=== PATIENT | male | born 1975 | race Two or more races ===

== ENCOUNTER 2024-07-21 08:53 | Inpatient (IN) | payer OTHER ==
[~2024-07-21] VITALS: Ht 172.7 cm; Wt 102.3 kg
[2024-07-21 09:50] LABS: COVID AG,FIA SOURCE NASAL SWAB
[2024-07-21 09:54] LABS: BASOPHILS % (AUTO) 0.5 % (0.0-2.0); EOSINOPHILS % (AUTO) 0.2 % (1.0-6.0); HEMATOCRIT 38.8 % (41-53); HEMOGLOBIN 12.8 g/dL (13.5-17.5); LYMPHOCYTES # (AUTO) 1.5 K/uL (1.0-4.8); LYMPHOCYTES % (AUTO) 14.4 % (22.0-44.0); MEAN CORPUSCULAR HEMOGLOBIN 29.9 pg (26.0-34.0); MEAN CORPUSCULAR HGB CONC 33.1 G/dL (31.0-37.0); MEAN CORPUSCULAR VOLUME 91 fL (80-100); MONOCYTES # (AUTO) 1.2 K/uL (0.1-1.0); MONOCYTES % (AUTO) 11.1 % (2.0-9.0); NEUTROPHILS # (AUTO) 7.9 K/uL (1.8-7.7); NEUTROPHILS % (AUTO) 73.8 % (40.0-70.0); PLATELET COUNT (AUTO) 258 K/uL (150-450); RED BLOOD CELL COUNT(AUTO) 4.28 MIL/uL (4.50-5.90); WHITE BLOOD COUNT (AUTO) 10.7 K/uL (4.5-11.0)
[2024-07-21 10:17] LABS: ALCOHOL, BLOOD (SERUM) < 3 mg/dL (0-10)
[2024-07-21 10:33] LABS: SARS-COV2 (COVID) ANTIGEN,FIA Negative (Negative)
[2024-07-21 10:35] LABS: ANION GAP 15 mmol/L (8-16); CALCIUM, TOTAL 8.8 mg/dL (8.8-10.5); CARBON DIOXIDE 25 mmol/L (22-29); CHLORIDE 107 mmol/L (98-107); CREATININE 1.15 mg/dL (0.60-1.30); GLOMERULAR FILTR. RATE CALC > 60 mL/min (>60); GLUCOSE,RANDOM 112 mg/dL (70-110); SODIUM SERUM 147 mmol/L (136-145); UREA NITROGEN, BLOOD 27 mg/dL (7-18)
[2024-07-21 12:36] VITALS: BP 132/73; PULSE 110; RESP 20; TEMP 98.4; O2SAT 97
[2024-07-21 15:21] VITALS: BP 132/73; PULSE 110; RESP 20; TEMP 98.4; O2SAT 97
[2024-07-21 21:11] VITALS: BP 143/97; PULSE 125; RESP 20; TEMP 99.2; O2SAT 93
[2024-07-21] MEDS: LORazepam 2 MG/ML VIAL IVP ONE (21:34)
[2024-07-22] MEDS ORDERED: ONDANSETRON HCL 4 MG/2 ML VIAL IVP PRN (00:45)
[2024-07-22] MEDS ORDERED: ACETAMINOPHEN 325 MG TABLET PO PRN (00:45)
[2024-07-22] MEDS ORDERED: ALBUTEROL SULFATE 2.5 MG/0.5 ML NEB SOLUTION NEB PRN (00:45)
[2024-07-22] MEDS ORDERED: ZOLPIDEM TARTRATE 5 MG TABLET PO PRN (00:45)
[2024-07-22] MEDS ORDERED: HYDROCODONE/ACETAMINOPHEN 5-325 MG TABLET PO PRN (00:45)
[2024-07-22] MEDS ORDERED: BISACODYL 10 MG RECTAL RECTAL SUPPOSITORY PR PRN (00:45)
[2024-07-22] MEDS ORDERED: IPRATROPIUM BROMIDE 0.5 MG/2.5 ML NEB SOLUTION NEB PRN (00:45)
[2024-07-22] MEDS ORDERED: MAGNESIUM HYDROXIDE SUSPENSION 30 ML UDCUP PO PRN (00:45)
[2024-07-22 05:37] VITALS: BP 157/93; PULSE 103; RESP 20; TEMP 98.1; O2SAT 93
[2024-07-22] MEDS: MORPHINE SULFATE 2 MG/ML SYRINGE IVP PRN (05:51)
[2024-07-22] MEDS: PANTOPRAZOLE SODIUM 40 MG DR TABLET PO SCH (09:09)
[2024-07-22] MEDS: HEPARIN SODIUM,PORCINE 5,000 UNITS/ML VIAL SQ SCH (09:09)
[2024-07-22 10:30] VITALS: BP 118/85; PULSE 92; RESP 20; TEMP 98; O2SAT 93
[2024-07-22 19:46] VITALS: BP 112/75; PULSE 89; RESP 20; TEMP 98.2; O2SAT 98
[2024-07-23 06:33] VITALS: BP 112/71; PULSE 71; RESP 18; TEMP 98.1; O2SAT 96
[2024-07-23 07:29] VITALS: BP 116/70; PULSE 74; RESP 18; TEMP 98.4; O2SAT 96
== END 2024-07-23 14:55 | DRG 885 ==
LOC: EMS 08:53 → EDH 11:36 → 6S 12:21
PROVIDERS: ADMIT Hospitalist; ATTEND Hospitalist
PROC: GZ56ZZZ Individual Psychotherapy, Supportive (ICD-10-PCS; principal; 2024-07-22)
DX: F23 Brief psychotic disorder (principal); Z20.822 Contact with and (suspected) exposure to COVID-19; Z88.2 Allergy status to sulfonamides; Z91.128 Patient's intentional underdosing of medication regimen for other reason
CPT/HCPCS: 80048; 85025; 93005; 99285; G0480; J1644; J2060; J2270

== ENCOUNTER 2024-07-28 02:38 | Inpatient (IN) | payer OTHER ==
[~2024-07-28] VITALS: Ht 167.6 cm; Wt 125.2 kg
[2024-07-28 04:54] LABS: BASOPHILS % (AUTO) 0.3 % (0.0-2.0); HEMATOCRIT 35.6 % (41-53); HEMOGLOBIN 11.9 g/dL (13.5-17.5); LYMPHOCYTES # (AUTO) 1.4 K/uL (1.0-4.8); LYMPHOCYTES % (AUTO) 14.2 % (22.0-44.0); MEAN CORPUSCULAR HEMOGLOBIN 29.9 pg (26.0-34.0); MEAN CORPUSCULAR HGB CONC 33.5 G/dL (31.0-37.0); MEAN CORPUSCULAR VOLUME 89 fL (80-100); MONOCYTES # (AUTO) 1.5 K/uL (0.1-1.0); MONOCYTES % (AUTO) 14.7 % (2.0-9.0); NEUTROPHILS % (AUTO) 69.8 % (40.0-70.0); PLATELET COUNT (AUTO) 185 K/uL (150-450); RED BLOOD CELL COUNT(AUTO) 3.98 MIL/uL (4.50-5.90); RED CELL DISTRIBUTION WIDTH 13.6 % (11.5-14.5)
[2024-07-28 04:57] LABS: COVID AG,FIA SOURCE NASAL SWAB
[2024-07-28 05:02] LABS: ANION GAP 10 mmol/L (8-16); CALCIUM, TOTAL 8.2 mg/dL (8.8-10.5); CARBON DIOXIDE 25 mmol/L (22-29); CHLORIDE 101 mmol/L (98-107); CREATININE 0.88 mg/dL (0.60-1.30); GLOMERULAR FILTR. RATE CALC > 60 mL/min (>60); GLUCOSE,RANDOM 118 mg/dL (70-110); POTASSIUM 3.7 mmol/L (3.5-5.1); SODIUM SERUM 136 mmol/L (136-145); UREA NITROGEN, BLOOD 13 mg/dL (7-18)
[2024-07-28 05:14] LABS: ALCOHOL, BLOOD (SERUM) < 3 mg/dL (0-10)
[2024-07-28 05:24] LABS: SARS-COV2 (COVID) ANTIGEN,FIA Negative (Negative)
[2024-07-28 10:59] LABS: ALCOHOL, URINE DRUG SCREEN NEGATIVE (NEGATIVE); AMPHET/METH SCREEN,URINE NEGATIVE (NEGATIVE); BARBITURATE SCREEN, URINE NEGATIVE (NEGATIVE); BENZODIAZEPINES SCREEN,URINE NEGATIVE (NEGATIVE); CANNABINOID SCREEN,URINE NEGATIVE (NEGATIVE); COCAINE SCREEN,URINE NEGATIVE (NEGATIVE); METHADONE SCREEN, URINE NEGATIVE (NEGATIVE); OPIATE SCREEN,URINE NEGATIVE (NEGATIVE); PHENCYCLIDINE SCREEN,URINE NEGATIVE (NEGATIVE)
[2024-07-28 11:07] VITALS: BP 130/87; PULSE 87; RESP 19; TEMP 97.6; O2SAT 95
[2024-07-28] MEDS: HEPARIN SODIUM,PORCINE 5,000 UNITS/ML VIAL SQ SCH (17:53)
[2024-07-28 19:24] LABS: APPEARANCE,URINE TURBID (CLEAR); BILIRUBIN,URINE NEGATIVE (NEGATIVE); COLOR,URINE YELLOW (YELLOW); GLUCOSE, URINE (UA) NEGATIVE (NEGATIVE); LEUKOCYTE ESTERASE ,URINE NEGATIVE (NEGATIVE); NITRATE,URINE NEGATIVE (NEGATIVE); OCCULT BLOOD,URINE NEGATIVE (NEGATIVE); PROTEIN,URINE TRACE mg/dL (NEGATIVE); SPECIFIC GRAVITIY, URINE 1.022 (1.003-1.030); UROBILINOGEN,URINE <=1.0 mg/dL (<=1.0)
[2024-07-28 20:04] VITALS: BP 117/70; PULSE 97; RESP 20; TEMP 98; O2SAT 96
[2024-07-28] MEDS: ZOLPIDEM TARTRATE 5 MG TABLET PO PRN (23:37)
[2024-07-29] MEDS: ACETAMINOPHEN 325 MG TABLET PO PRN (02:15)
[2024-07-29 05:15] VITALS: BP 110/78; PULSE 81; RESP 20; TEMP 98; O2SAT 95
[2024-07-29] MEDS: FAMOTIDINE 20 MG TABLET PO SCH (08:28)
[2024-07-29 08:32] VITALS: BP 125/77; PULSE 80; RESP 18; TEMP 98.1; O2SAT 95
[2024-07-29 20:15] VITALS: BP 124/76; PULSE 90; RESP 20; TEMP 99; O2SAT 92
[2024-07-30 08:00] VITALS: BP 124/84; PULSE 81; RESP 18; TEMP 98.3; O2SAT 99
[2024-07-30 10:52] VITALS: BP 133/82; PULSE 76; RESP 19; TEMP 98.1; O2SAT 98
[2024-07-30 20:19] VITALS: BP 136/80; PULSE 92; RESP 20; TEMP 98.4; O2SAT 92
[2024-07-31] MEDS: LORazepam 2 MG/ML VIAL IM ONE ×2 (01:28→01:30)
[2024-07-31 08:33] VITALS: BP 103/74; PULSE 90; RESP 20; TEMP 98.4; O2SAT 98
[2024-07-31 19:44] VITALS: BP 123/76; PULSE 99; RESP 20; TEMP 97.5; O2SAT 95
[2024-08-01] MEDS: MAGNESIUM HYDROXIDE SUSPENSION 30 ML UDCUP PO PRN (01:39)
[2024-08-01 05:06] VITALS: BP 128/82; PULSE 90; RESP 20; TEMP 98.7; O2SAT 94
[2024-08-01 07:23] VITALS: BP 120/77; PULSE 95; RESP 18; TEMP 97.7; O2SAT 93
[2024-08-01] MEDS: QUEtiapine FUMARATE 25 MG TABLET PO PRN (10:18)
[2024-08-01 19:31] VITALS: BP 117/86; PULSE 100; RESP 19; TEMP 97.2; O2SAT 94
[2024-08-02 06:06] VITALS: BP 124/69; PULSE 94; RESP 20; TEMP 98.1; O2SAT 95
[2024-08-02 08:09] VITALS: BP 116/75; PULSE 89; RESP 18; TEMP 98.3; O2SAT 95
[2024-08-02 20:15] VITALS: BP 141/74; PULSE 99; RESP 20; TEMP 98.2; O2SAT 99
[2024-08-03 07:54] VITALS: BP 119/74; PULSE 93; RESP 18; TEMP 97.8; O2SAT 94
[2024-08-03 08:39] LABS: BASOPHILS % (AUTO) 0.5 % (0.0-2.0); EOSINOPHILS % (AUTO) 4.6 % (1.0-6.0); HEMATOCRIT 40.4 % (41-53); HEMOGLOBIN 13.3 g/dL (13.5-17.5); LYMPHOCYTES # (AUTO) 2.1 K/uL (1.0-4.8); LYMPHOCYTES % (AUTO) 25.3 % (22.0-44.0); MEAN CORPUSCULAR HEMOGLOBIN 29.7 pg (26.0-34.0); MEAN CORPUSCULAR HGB CONC 32.8 G/dL (31.0-37.0); MEAN CORPUSCULAR VOLUME 90 fL (80-100); MONOCYTES # (AUTO) 0.8 K/uL (0.1-1.0); MONOCYTES % (AUTO) 9.6 % (2.0-9.0); NEUTROPHILS # (AUTO) 5.1 K/uL (1.8-7.7); PLATELET COUNT (AUTO) 381 K/uL (150-450); RED BLOOD CELL COUNT(AUTO) 4.47 MIL/uL (4.50-5.90); RED CELL DISTRIBUTION WIDTH 13.9 % (11.5-14.5); WHITE BLOOD COUNT (AUTO) 8.4 K/uL (4.5-11.0)
[2024-08-03 09:03] LABS: ANION GAP 9 mmol/L (8-16); CALCIUM, TOTAL 8.9 mg/dL (8.8-10.5); CARBON DIOXIDE 27 mmol/L (22-29); CHLORIDE 100 mmol/L (98-107); CREATININE 0.82 mg/dL (0.60-1.30); GLOMERULAR FILTR. RATE CALC > 60 mL/min (>60); GLUCOSE,RANDOM 97 mg/dL (70-110); POTASSIUM 4.5 mmol/L (3.5-5.1); SODIUM SERUM 136 mmol/L (136-145); UREA NITROGEN, BLOOD 17 mg/dL (7-18)
[2024-08-04 04:29] VITALS: BP 124/86; PULSE 96; RESP 18; TEMP 97.9; O2SAT 94
[2024-08-04 08:06] LABS: INR 1.1 (0.9-1.1); PROTHROMBIN TIME 11.3 SEC (9.4-11.6)
[2024-08-04 08:32] VITALS: BP 124/84; PULSE 89; RESP 19; TEMP 97.9; O2SAT 97
[2024-08-04] MEDS ORDERED: FentaNYL CITRATE PF 100 MCG/2 ML VIAL ONE (10:46)
[2024-08-04] MEDS ORDERED: MIDAZOLAM HCL 2 MG/2 ML VIAL ONE (10:47)
[2024-08-04] MEDS ORDERED: LIDOCAINE/PF 1% 30 ML VIAL ONE (10:47)
[2024-08-04] MEDS ORDERED: FAMO20 PO (15:33)
[2024-08-04] MEDS ORDERED: QUET25TA PO (15:34)
[2024-08-04 19:33] LABS: BASOPHILS % (AUTO) 0.5 % (0.0-2.0); EOSINOPHILS % (AUTO) 3.1 % (1.0-6.0); HEMATOCRIT 40.3 % (41-53); HEMOGLOBIN 13.2 g/dL (13.5-17.5); LYMPHOCYTES # (AUTO) 1.8 K/uL (1.0-4.8); LYMPHOCYTES % (AUTO) 22.3 % (22.0-44.0); MEAN CORPUSCULAR HEMOGLOBIN 29.6 pg (26.0-34.0); MEAN CORPUSCULAR HGB CONC 32.8 G/dL (31.0-37.0); MEAN CORPUSCULAR VOLUME 90 fL (80-100); MONOCYTES # (AUTO) 0.6 K/uL (0.1-1.0); MONOCYTES % (AUTO) 7.1 % (2.0-9.0); NEUTROPHILS # (AUTO) 5.4 K/uL (1.8-7.7); PLATELET COUNT (AUTO) 395 K/uL (150-450); RED BLOOD CELL COUNT(AUTO) 4.47 MIL/uL (4.50-5.90); RED CELL DISTRIBUTION WIDTH 13.8 % (11.5-14.5)
[2024-08-04 19:48] LABS: ANION GAP 9 mmol/L (8-16); CALCIUM, TOTAL 9.1 mg/dL (8.8-10.5); CARBON DIOXIDE 28 mmol/L (22-29); CHLORIDE 102 mmol/L (98-107); CREATININE 1.08 mg/dL (0.60-1.30); GLOMERULAR FILTR. RATE CALC > 60 mL/min (>60); GLUCOSE,RANDOM 157 mg/dL (70-110); SODIUM SERUM 139 mmol/L (136-145); UREA NITROGEN, BLOOD 28 mg/dL (7-18)
[2024-08-04 20:17] VITALS: BP 143/85; PULSE 109; RESP 19; TEMP 98.5; O2SAT 97
[2024-08-05 04:15] VITALS: BP 118/75; PULSE 70; RESP 19; TEMP 98.2; O2SAT 98
[2024-08-05 09:06] VITALS: BP 124/70; PULSE 93; RESP 20; TEMP 97.4; O2SAT 92
[2024-08-05] MEDS: QUEtiapine FUMARATE 100 MG TABLET PO SCH (16:11)
[2024-08-05 20:05] VITALS: BP 129/82; PULSE 97; RESP 19; TEMP 97.8; O2SAT 95
[2024-08-06 05:15] VITALS: BP 126/83; PULSE 78; RESP 19; TEMP 97.8; O2SAT 96
[2024-08-06 08:18] VITALS: BP 149/66; PULSE 109; RESP 18; TEMP 98.5; O2SAT 96
[2024-08-06 19:50] VITALS: BP 111/63; PULSE 116; RESP 20; TEMP 98.3; O2SAT 93
[2024-08-07 19:25] VITALS: BP 101/61; PULSE 100; RESP 20; TEMP 98.4; O2SAT 95
[2024-08-08 05:00] VITALS: BP 114/64; PULSE 93; RESP 20; TEMP 98.4; O2SAT 95
[2024-08-08 07:39] VITALS: BP 134/69; PULSE 87; RESP 20; TEMP 97.6; O2SAT 95
[2024-08-08 19:39] VITALS: BP 114/64; PULSE 77; RESP 20; TEMP 98.2; O2SAT 99
[2024-08-09 04:30] VITALS: BP 107/69; PULSE 82; RESP 20; TEMP 98.1; O2SAT 99
[2024-08-09 08:07] VITALS: BP 124/80; PULSE 84; RESP 20; TEMP 98.5; O2SAT 96
[2024-08-09] MEDS ORDERED: QUET100T PO (11:59)
[2024-08-09] MEDS ORDERED: ACET-2247 PO (12:00)
[2024-08-09 19:56] VITALS: BP 129/79; PULSE 111; RESP 20; TEMP 97.5; O2SAT 94
[2024-08-09 23:49] VITALS: BP 119/80; PULSE 95; RESP 20; O2SAT 95
[2024-08-10 05:31] VITALS: BP 101/70; PULSE 86; RESP 20; TEMP 97.7; O2SAT 96
[2024-08-10 09:36] VITALS: BP 113/85; PULSE 89; RESP 18; TEMP 97.9; O2SAT 97
[2024-08-10 13:30] VITALS: BP 111/80; PULSE 92; RESP 18; TEMP 98.3; O2SAT 98
== END 2024-08-10 17:00 | DRG 815 ==
LOC: EMS 02:38 → EDH 09:06 → 5S 10:55 → 6S 12:56
PROVIDERS: ADMIT Internal Medicine; ATTEND Internal Medicine
PROC: GZ52ZZZ Individual Psychotherapy, Cognitive (ICD-10-PCS; principal; 2024-08-06)
DX: R59.0 Localized enlarged lymph nodes (principal); E44.0 Moderate protein-calorie malnutrition; Z68.41 Body mass index [BMI] 40.0-44.9, adult; K11.1 Hypertrophy of salivary gland; Z20.822 Contact with and (suspected) exposure to COVID-19; F20.9 Schizophrenia, unspecified; E66.01 Morbid (severe) obesity due to excess calories; Z88.2 Allergy status to sulfonamides; Z88.6 Allergy status to analgesic agent
CPT/HCPCS: 70490; 80048; 80307; 81003; 82140; 85025; 85610; 87081; 99285; G0480; J1644; J2060; J2250; J3010; J3490

== ENCOUNTER 2024-08-10 20:57 | Inpatient (IN) | payer OTHER ==
[~2024-08-10] VITALS: Ht 172.7 cm; Wt 102.3 kg
[~2024-08-10 20:57] MED LIST: ACET-2247 PO; QUET100T PO; QUET25TA PO
[2024-08-10] MEDS ORDERED: ONDANSETRON HCL 4 MG/2 ML VIAL IVP PRN (22:00)
[2024-08-10] MEDS ORDERED: MAGNESIUM HYDROXIDE SUSPENSION 30 ML UDCUP PO PRN (22:00)
[2024-08-10] MEDS ORDERED: IPRATROPIUM BROMIDE 0.5 MG/2.5 ML NEB SOLUTION NEB PRN (22:00)
[2024-08-10] MEDS ORDERED: BISACODYL 10 MG RECTAL RECTAL SUPPOSITORY PR PRN (22:00)
[2024-08-10] MEDS ORDERED: ALBUTEROL SULFATE 2.5 MG/0.5 ML NEB SOLUTION NEB PRN (22:00)
[2024-08-10] MEDS ORDERED: ACETAMINOPHEN 325 MG TABLET PO PRN (22:00)
[2024-08-10] MEDS ORDERED: FAMO20 PO (22:32)
[2024-08-10] MEDS: HEPARIN SODIUM,PORCINE 5,000 UNITS/ML VIAL SQ SCH (23:25)
[2024-08-10 23:32] LABS: ANION GAP 12 mmol/L (8-16); CALCIUM, TOTAL 9.6 mg/dL (8.8-10.5); CARBON DIOXIDE 26 mmol/L (22-29); CHLORIDE 103 mmol/L (98-107); CREATININE 1.68 mg/dL (0.60-1.30); GLOMERULAR FILTR. RATE CALC 43 mL/min (>60); GLUCOSE,RANDOM 111 mg/dL (70-110); POTASSIUM 4.4 mmol/L (3.5-5.1); SODIUM SERUM 141 mmol/L (136-145); UREA NITROGEN, BLOOD 28 mg/dL (7-18)
[2024-08-10 23:34] LABS: BASOPHILS % (AUTO) 0.4 % (0.0-2.0); EOSINOPHILS % (AUTO) 0.1 % (1.0-6.0); HEMATOCRIT 43.1 % (41-53); LYMPHOCYTES # (AUTO) 1.6 K/uL (1.0-4.8); LYMPHOCYTES % (AUTO) 12.9 % (22.0-44.0); MEAN CORPUSCULAR HEMOGLOBIN 29.5 pg (26.0-34.0); MEAN CORPUSCULAR HGB CONC 32.5 G/dL (31.0-37.0); MEAN CORPUSCULAR VOLUME 91 fL (80-100); MONOCYTES # (AUTO) 1.2 K/uL (0.1-1.0); MONOCYTES % (AUTO) 9.4 % (2.0-9.0); NEUTROPHILS # (AUTO) 9.7 K/uL (1.8-7.7); NEUTROPHILS % (AUTO) 77.2 % (40.0-70.0); PLATELET COUNT (AUTO) 331 K/uL (150-450); RED BLOOD CELL COUNT(AUTO) 4.76 MIL/uL (4.50-5.90); RED CELL DISTRIBUTION WIDTH 14.2 % (11.5-14.5); WHITE BLOOD COUNT (AUTO) 12.6 K/uL (4.5-11.0)
[2024-08-10 23:52] LABS: ALCOHOL, BLOOD (SERUM) < 3 mg/dL (0-10)
[2024-08-11] MEDS: ZOLPIDEM TARTRATE 5 MG TABLET PO PRN (01:10)
[2024-08-11] MEDS: QUEtiapine FUMARATE 25 MG TABLET PO PRN (01:10)
[2024-08-11 04:47] VITALS: BP 127/81; PULSE 102; RESP 20; TEMP 97.8; O2SAT 95
[2024-08-11 07:41] VITALS: BP 131/78; PULSE 95; RESP 20; TEMP 98.2; O2SAT 100
[2024-08-11] MEDS: PANTOPRAZOLE SODIUM 40 MG DR TABLET PO SCH (08:57)
[2024-08-11] MEDS: QUEtiapine FUMARATE 100 MG TABLET PO SCH (10:14)
[2024-08-11 13:26] LABS: PH,URINE DRUG SCREEN 5.5 (5.0-8.0)
[2024-08-11 13:33] LABS: ALCOHOL, URINE DRUG SCREEN NEGATIVE (NEGATIVE); AMPHET/METH SCREEN,URINE NEGATIVE (NEGATIVE); BARBITURATE SCREEN, URINE NEGATIVE (NEGATIVE); BENZODIAZEPINES SCREEN,URINE NEGATIVE (NEGATIVE); CANNABINOID SCREEN,URINE NEGATIVE (NEGATIVE); COCAINE SCREEN,URINE NEGATIVE (NEGATIVE); METHADONE SCREEN, URINE NEGATIVE (NEGATIVE); OPIATE SCREEN,URINE NEGATIVE (NEGATIVE); PHENCYCLIDINE SCREEN,URINE NEGATIVE (NEGATIVE)
[2024-08-11 20:33] VITALS: BP 119/71; PULSE 88; RESP 20; TEMP 98.4; O2SAT 94
[2024-08-12 06:26] VITALS: BP 117/76; PULSE 84; RESP 20; TEMP 97.9; O2SAT 99
[2024-08-12 06:51] LABS: BASOPHILS % (AUTO) 0.5 % (0.0-2.0); EOSINOPHILS % (AUTO) 6.1 % (1.0-6.0); HEMATOCRIT 36.7 % (41-53); HEMOGLOBIN 12.2 g/dL (13.5-17.5); LYMPHOCYTES # (AUTO) 1.9 K/uL (1.0-4.8); LYMPHOCYTES % (AUTO) 32.1 % (22.0-44.0); MEAN CORPUSCULAR HGB CONC 33.3 G/dL (31.0-37.0); MEAN CORPUSCULAR VOLUME 90 fL (80-100); MONOCYTES # (AUTO) 0.6 K/uL (0.1-1.0); MONOCYTES % (AUTO) 11.1 % (2.0-9.0); NEUTROPHILS # (AUTO) 2.9 K/uL (1.8-7.7); NEUTROPHILS % (AUTO) 50.2 % (40.0-70.0); PLATELET COUNT (AUTO) 233 K/uL (150-450); RED BLOOD CELL COUNT(AUTO) 4.08 MIL/uL (4.50-5.90); RED CELL DISTRIBUTION WIDTH 14.3 % (11.5-14.5); WHITE BLOOD COUNT (AUTO) 5.8 K/uL (4.5-11.0)
[2024-08-12 07:54] LABS: ALANINE AMINOTRANSFERASE 70 U/L (12-78); ALBUMIN 2.7 g/dL (3.4-5.0); ALKALINE PHOSPHATASE 52 U/L (46-116); ANION GAP 8 mmol/L (8-16); ASPARTATE AMINOTRANSFERASE 57 U/L (15-37); BILIRUBIN,TOTAL 0.4 mg/dL (0.1-1.0); CALCIUM, TOTAL 8.3 mg/dL (8.8-10.5); CARBON DIOXIDE 27 mmol/L (22-29); CHLORIDE 100 mmol/L (98-107); CREATININE 0.83 mg/dL (0.60-1.30); GLOMERULAR FILTR. RATE CALC > 60 mL/min (>60); GLUCOSE,RANDOM 104 mg/dL (70-110); POTASSIUM 3.6 mmol/L (3.5-5.1); SODIUM SERUM 135 mmol/L (136-145); TOTAL PROTEIN, SERUM 7.6 g/dL (6.4-8.2); UREA NITROGEN, BLOOD 18 mg/dL (7-18)
[2024-08-12 08:00] VITALS: BP 124/87; PULSE 100; RESP 18; TEMP 97.6; O2SAT 96
[2024-08-12 19:57] VITALS: BP 130/72; PULSE 103; RESP 18; TEMP 97.3; O2SAT 94
[2024-08-13 03:32] VITALS: BP 132/69; PULSE 88; RESP 19; TEMP 97.5; O2SAT 94
[2024-08-13 08:00] VITALS: BP 139/74; PULSE 94; RESP 18; TEMP 97.2; O2SAT 100
[2024-08-13 20:00] VITALS: BP 106/69; PULSE 81; RESP 18; O2SAT 96
[2024-08-14 04:00] VITALS: BP 116/76; PULSE 72; RESP 19; O2SAT 95
[2024-08-14 08:33] VITALS: BP 135/90; PULSE 96; RESP 19; TEMP 98.4; O2SAT 94
[2024-08-14 20:00] VITALS: BP 132/72; PULSE 67; RESP 19; TEMP 97.6; O2SAT 96
[2024-08-15 04:00] VITALS: BP 129/68; PULSE 69; RESP 19; TEMP 97.5; O2SAT 96
[2024-08-15 07:51] VITALS: BP 123/76; PULSE 103; RESP 20; TEMP 97.8; O2SAT 96
[2024-08-15] MEDS ORDERED: MAGN-169 PO (10:56)
== END 2024-08-15 17:47 | DRG 885 ==
LOC: EMS 20:57 → EDH 21:51 → 6S 08-11 00:20
PROVIDERS: ADMIT Hospitalist; ATTEND Hospitalist
DX: F20.0 Paranoid schizophrenia (principal); N28.9 Disorder of kidney and ureter, unspecified; D72.829 Elevated white blood cell count, unspecified; R22.1 Localized swelling, mass and lump, neck; Z88.2 Allergy status to sulfonamides
CPT/HCPCS: 71045; 80048; 80053; 80307; 85025; 87040; 99285; G0378; G0480; J1644; 36415-L1; 36415-TC

== ENCOUNTER 2024-08-31 17:57 | Inpatient (IN) | payer OTHER ==
[~2024-08-31] VITALS: Ht 172.7 cm; Wt 102.3 kg
[~2024-08-31 17:57] MED LIST changes: +MAGN-169 PO
[2024-08-31 20:01] LABS: BASOPHILS % (AUTO) 0.4 % (0.0-2.0); EOSINOPHILS % (AUTO) 2.2 % (1.0-6.0); HEMATOCRIT 38.2 % (41-53); HEMOGLOBIN 12.8 g/dL (13.5-17.5); LYMPHOCYTES # (AUTO) 1.5 K/uL (1.0-4.8); LYMPHOCYTES % (AUTO) 24.6 % (22.0-44.0); MEAN CORPUSCULAR HEMOGLOBIN 30.2 pg (26.0-34.0); MEAN CORPUSCULAR HGB CONC 33.5 G/dL (31.0-37.0); MEAN CORPUSCULAR VOLUME 90 fL (80-100); MONOCYTES # (AUTO) 0.7 K/uL (0.1-1.0); NEUTROPHILS # (AUTO) 3.7 K/uL (1.8-7.7); NEUTROPHILS % (AUTO) 61.8 % (40.0-70.0); PLATELET COUNT (AUTO) 253 K/uL (150-450); RED BLOOD CELL COUNT(AUTO) 4.23 MIL/uL (4.50-5.90); RED CELL DISTRIBUTION WIDTH 15.4 % (11.5-14.5)
[2024-08-31 20:07] LABS: ANION GAP 7 mmol/L (8-16); CALCIUM, TOTAL 8.3 mg/dL (8.8-10.5); CARBON DIOXIDE 28 mmol/L (22-29); CHLORIDE 103 mmol/L (98-107); CREATININE 0.87 mg/dL (0.60-1.30); GLOMERULAR FILTR. RATE CALC > 60 mL/min (>60); GLUCOSE,RANDOM 109 mg/dL (70-110); POTASSIUM 3.9 mmol/L (3.5-5.1); SODIUM SERUM 138 mmol/L (136-145); UREA NITROGEN, BLOOD 21 mg/dL (7-18)
[2024-08-31 20:13] LABS: COVID AG,FIA SOURCE NASAL SWAB
[2024-08-31 20:24] LABS: ALCOHOL, BLOOD (SERUM) < 3 mg/dL (0-10)
[2024-08-31 21:06] LABS: SARS-COV2 (COVID) ANTIGEN,FIA Negative (Negative)
[2024-08-31] MEDS: DiphenhydrAMINE HCL 50 MG/ML VIAL IM ONE (21:34)
[2024-08-31] MEDS: HALOPERIDOL LACTATE 5 MG/ML VIAL IM ONE (21:34)
[2024-08-31] MEDS: LORazepam 2 MG/ML VIAL IM ONE (21:35)
[2024-08-31] MEDS ORDERED: ACETAMINOPHEN 325 MG TABLET PO PRN (21:45)
[2024-08-31] MEDS ORDERED: MAGNESIUM HYDROXIDE SUSPENSION 30 ML UDCUP PO PRN (21:45)
[2024-09-01 00:22] LABS: APPEARANCE,URINE HAZY (CLEAR); BILIRUBIN,URINE NEGATIVE (NEGATIVE); COLOR,URINE YELLOW (YELLOW); GLUCOSE, URINE (UA) NEGATIVE (NEGATIVE); KETONES,URINE TRACE mg/dL (NEGATIVE); LEUKOCYTE ESTERASE ,URINE LARGE (NEGATIVE); NITRATE,URINE NEGATIVE (NEGATIVE); OCCULT BLOOD,URINE NEGATIVE (NEGATIVE); PROTEIN,URINE TRACE mg/dL (NEGATIVE); UROBILINOGEN,URINE <=1.0 mg/dL (<=1.0)
[2024-09-01] MEDS: HEPARIN SODIUM,PORCINE 5,000 UNITS/ML VIAL SQ SCH (00:22)
[2024-09-01 00:29] LABS: ALCOHOL, URINE DRUG SCREEN NEGATIVE (NEGATIVE); AMPHET/METH SCREEN,URINE NEGATIVE (NEGATIVE); BARBITURATE SCREEN, URINE NEGATIVE (NEGATIVE); BENZODIAZEPINES SCREEN,URINE NEGATIVE (NEGATIVE); CANNABINOID SCREEN,URINE NEGATIVE (NEGATIVE); COCAINE SCREEN,URINE NEGATIVE (NEGATIVE); METHADONE SCREEN, URINE NEGATIVE (NEGATIVE); OPIATE SCREEN,URINE NEGATIVE (NEGATIVE); PHENCYCLIDINE SCREEN,URINE NEGATIVE (NEGATIVE)
[2024-09-01 00:36] VITALS: BP 126/86; PULSE 90; RESP 18; TEMP 99.3; O2SAT 97
[2024-09-01 00:37] VITALS: BP 126/86; PULSE 90; RESP 18; TEMP 99.3; O2SAT 97
[2024-09-01 01:37] LABS: BACTERIA,URINE Many /HPF (None Seen); RBC,URINE 0-2 /HPF (0-2); SQUAMOUS EPITHELIAL CELL,UR Few /LPF (None Seen); WBC,URINE 26-50 /HPF (0-5)
[2024-09-01 05:19] VITALS: BP 107/67; PULSE 87; RESP 20; TEMP 97.4; O2SAT 95
[2024-09-01 05:22] VITALS: BP 107/67; PULSE 87; RESP 20; TEMP 97.4; O2SAT 95
[2024-09-01 08:13] VITALS: BP 121/63; PULSE 93; RESP 20; TEMP 97.9; O2SAT 95
[2024-09-01] MEDS: FAMOTIDINE 20 MG TABLET PO SCH (09:41)
[2024-09-01] MEDS: QUEtiapine FUMARATE 100 MG TABLET PO SCH (16:07)
[2024-09-01 19:36] VITALS: BP 114/72; PULSE 104; RESP 20; TEMP 98.5; O2SAT 97
[2024-09-02 03:06] LABS: HEPATITIS C AB (EIA) Non Reactive (Non Reactive)
[2024-09-02 03:40] VITALS: BP 114/65; PULSE 79; RESP 18; TEMP 97.8; O2SAT 95
[2024-09-02] MEDS: QUEtiapine FUMARATE 25 MG TABLET PO PRN (05:50)
[2024-09-02 07:34] VITALS: BP 118/68; PULSE 84; RESP 18; TEMP 98.2; O2SAT 96
[2024-09-02] MEDS: CEPHALEXIN MONOHYDRATE 500 MG CAPSULE PO SCH (12:58)
[2024-09-02 15:45] VITALS: BP 112/86; PULSE 84; RESP 20; TEMP 98.3; O2SAT 97
[2024-09-02] MEDS: QUEtiapine FUMARATE 100 MG TABLET PO SCH (16:10)
[2024-09-02] MEDS: QUEtiapine FUMARATE 200 MG TABLET PO SCH (20:16)
[2024-09-02 20:18] VITALS: BP 97/56; PULSE 89; RESP 18; TEMP 98.2; O2SAT 98
[2024-09-03 04:42] VITALS: BP 97/56; PULSE 74; RESP 18; TEMP 97.8; O2SAT 96
[2024-09-03 07:41] VITALS: BP 110/68; PULSE 88; RESP 19; TEMP 97.7; O2SAT 96
[2024-09-03 17:16] VITALS: BP 116/71; PULSE 79; RESP 18; TEMP 97.9; O2SAT 97
[2024-09-03 20:00] VITALS: BP 103/57; PULSE 86; RESP 18; TEMP 97.7; O2SAT 97
[2024-09-04 04:00] VITALS: BP 97/66; PULSE 78; RESP 20; TEMP 97.5; O2SAT 96
[2024-09-04 09:28] VITALS: BP 125/64; PULSE 92; RESP 15; TEMP 97.8; O2SAT 100
[2024-09-04] MEDS ORDERED: QUET200T PO (15:43)
[2024-09-04] MEDS ORDERED: DOCU-385 PO (15:44)
== END 2024-09-04 19:29 | DRG 690 ==
LOC: EMS 17:57 → EDH 21:45 → 6S 23:17
PROVIDERS: ADMIT Internal Medicine; ATTEND Internal Medicine
PROC: GZ56ZZZ Individual Psychotherapy, Supportive (ICD-10-PCS; principal; 2024-09-01)
DX: N39.0 Urinary tract infection, site not specified (principal); F20.9 Schizophrenia, unspecified; Z20.822 Contact with and (suspected) exposure to COVID-19; E66.9 Obesity, unspecified; D64.9 Anemia, unspecified; I10 Essential (primary) hypertension; Z88.2 Allergy status to sulfonamides; Z68.34 Body mass index [BMI] 34.0-34.9, adult
CPT/HCPCS: 80048; 80307; 81001; 85025; 86803; 87077; 87086; 87340; 99285; G0480; J1200; J1630; J1644; J2060